=== PATIENT | male | born 1995 | race Caucasian/White ===

== ENCOUNTER → 2016-12-12 | Outpatient (CLI) | payer OTHER ==
[~2016-12-12] MED LIST: ENOX40IN SQ
--- NOTE | 2016-12-12 12:06 | DIAGNOSTIC IMAGING REPORT ---
LEFT RIBS UNILATERAL W/CHEST CLINICAL HISTORY: LEFT LOWER RIB PAIN COMPARISON STUDY: Chest 06/13/2012. FINDINGS: Lucency through the tip of the left 12th rib. The fragment is slightly distracted. The remaining left ribs are intact. No pneumothorax. No pleural effusions. The lungs are clear. The heart is normal in size. There are surgical clips within the right upper chest with partial resection of the right anterior first rib. This remains unchanged. IMPRESSION: Lucency through the tip of the left 12th rib which is likely developmental. However, recommend correlation for pain at this location to exclude the less likely possibility of a small distracted fracture. Electronically signed by: Aston Ravi M.D. 12/12/2016 12:05 PM Dictated Date/Time: 12/12/2016 11:58 AM
== END | disposition home or self-care (01) ==
LOC: C.RDSM 11:50
PROVIDERS: ATTEND Internal Medicine
DX: R07.81 Pleurodynia (principal)